=== PATIENT | male | born 1990 | race Caucasian/White ===

== ENCOUNTER 2023-11-16 08:46 | Emergency (ER) | payer OTHER, SELFPAY ==
[2023-11-16 09:02] VITALS: BP 120/73; BMI 18.6
[2023-11-16 09:11] VITALS: BP 120/73
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
[2023-11-16 10:02] VITALS: BP 124/77
[2023-11-16] MEDS: ADACEL 0.5 ML IM (10:21)
[2023-11-16 11:00] VITALS: BP 120/68
[2023-11-16] MEDS: AUGMENTIN 875 MG/125 MG 1 TABLET PO (11:28)
== END 2023-11-16 11:33 ==
LOC: EMR 08:46
PROVIDERS: EMERGENCY PHYSICIAN Emergency Medicine
DX: S02.2XXA Fracture of nasal bones, initial encounter for closed fracture (principal); S02.5XXA Fracture of tooth (traumatic), initial encounter for closed fracture; S01.512A Laceration without foreign body of oral cavity, initial encounter; S01.511A Laceration without foreign body of lip, initial encounter; S09.90XA Unspecified injury of head, initial encounter; Y09 Assault by unspecified means; Z23 Encounter for immunization
CPT/HCPCS: 99284; 12011; 90471; 70450; 70486; 90715